=== PATIENT | male | born 1965 | race Two or more races ===

== ENCOUNTER 2017-11-16 13:50 | Emergency (ER) | payer MEDICAID ==
--- NOTE | 2017-11-16 13:53 | EDPHY ---
HPI/HX/ROS/PE/MDM Narrative: CHIEF COMPLAINT: CP, meth use HPI: The patient is a 52 y/o male with a history of hypertension and IV drug abuse arriving via EMS complaining of chest pain after methamphetamine use last night and alcohol use this morning. He described pinpoint left-sided chest pain to EMS and received 324mg PO aspirin en route. No cardiac disease history. On my exam, patient denies chest pain. He states that he wants to "go sit down by the [place] and because" he is "a piece of shit." REVIEW OF SYSTEMS: Aside from elements discussed in the HPI, a comprehensive 10-point review of systems was reviewed and is negative. PMH: hypertension, history of IV drug use SOCIAL HISTORY: Methamphetamine and alcohol abuse. Smoker. PHYSICAL EXAM: General:Patient is alert, in no acute distress. Smells of alcohol. ENT:Eyes are normal to inspection. ENT inspection normal. Neck: Normal inspection. Full range of motion. Respiratory:No respiratory distress. Breath sounds normal bilaterally. Cardiovascular: Regular rate and rhythm. Strong peripheral pulses. Normal cap refill. Abdomen:The abdomen is nontender to palpation. There are no peritoneal signs. Back: Normal to inspection. No tenderness to palpation. Skin: Normal color. No rash. Warm and dry. Track guevara noted on bilateral ACs. Extremities: Normal appearance. Full range of motion. Neuro: Oriented x3. Normal motor function. Normal sensory function. (Angelo Barnes) ED Course: I took over care of this patient at 3:00 p.m.. This patient is here for alcohol intoxication, suicidal ideation and had a complaint of chest pain to EMS but denied any chest pain to Dr. Angelo Barnes who initially evaluated him. The patient is to be evaluated by Behavioral Health when appropriately sober. The patient is currently on a detain her. Cardiac workup thus far has been unremarkable. There were some findings on his chest x-ray which required further investigation, therefore a CT angiogram of his chest has been ordered and is currently pending. 4:40 p.m., spoke with on-call radiologist Dr. Rufus Bowden. Results of CT angiogram of chest discussed. No pulmonary embolism. Some left ventricular hypertrophy noted. 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 It measures 3.[address] Bowden recommends of pulmonology follow-up. Patient medically cleared for mental health evaluation when appropriately sober. 10:00 p.m., the patient is showing signs of alcohol withdrawal including mild agitation and tachycardia. He will be given oral Librium and Ativan as needed to treat alcohol withdrawal. 11:00 p.m., the patient still has not been evaluated by Behavioral Health because of his positive drug screen for methamphetamine as well as alcohol intoxication. Care will be turned over to Dr. Tim Barron at this time. ( Pepito Sheppard) EKG was ordered and interpreted by myself. Please see [employer] system for official reading. CXR: read by Dr. Haines as likely pneumatoceles on left, but infection cannot be excluded. CTA ordered. Patient signed out to Dr. Sheppard at 3pm pending CT results and sober evaluation. (Angelo Barnes) MDM: 0630AM: No acute events overnight. Patient here with suicidal ideation, positive for methamphetamine, initially came in with alcohol intoxication. Is noted he has been hypertensive. States he usually takes blood pressure medications during the day however then states he usually takes them at night. Labetalol and lisinopril. He has been ordered. Additionally he has been on [facility] protocol receiving Ativan Librium. Patient is signed over to Dr. Barnes at 7:00 a.m. Shift change. Pending mental health evaluation. (Tim Barron) Patient has been evaluated by mental health who have determined patient will be best served by transfer to the [facility] for detox, and they will work with him as an outpatient. They feel he is appropriate for discharge from the ED. (Angelo Barnes) - Data Points Laboratory Results: Laboratory Results 11/16/17 14:08 11/16/17 14:08 Medications Given: Discontinued Medications Chlordiazepoxide HCl (Librium) 50 mg PO EDNOW ONE Stop: 11/16/17 22:02 Last Admin: 11/16/17 22:11 Dose: 50 mg Chlordiazepoxide HCl (Librium) 25 mg PO EDNOW ONE Stop: 11/17/17 06:03 Last Admin: 11/17/17 06:04 Dose: 25 mg Labetalol HCl (Trandate) 100 mg PO EDNOW ONE Stop: 11/17/17 06:08 Last Admin: 11/17/17 06:28 Dose: 100 mg Lisinopril (Zestril) 20 mg PO EDNOW ONE Stop: 11/17/17 06:03 Last Admin: 11/17/17 06:04 Dose: 20 mg Lorazepam (Ativan) 1 mg PO EDNOW ONE Stop: 11/16/17 22:02 Last Admin: 11/16/17 22:11 Dose: 1 mg Lorazepam (Ativan) 1 mg PO EDNOW ONE Stop: 11/17/17 00:57 Last Admin: 11/17/17 00:56 Dose: 1 mg Lorazepam (Ativan) 1 mg PO EDNOW ONE Stop: 11/17/17 06:03 Last Admin: 11/17/17 06:04 Dose: 1 mg Lorazepam (Ativan Injection) 2 mg IVP EDNOW ONE Stop: 11/17/17 08:09 Last Admin: 11/17/17 08:12 Dose: 2 mg Lorazepam (Ativan Injection) 2 mg IVP EDNOW ONE Stop: 11/17/17 09:48 Last Admin: 11/17/17 11:18 Dose: 2 mg Nicotine (Nicoderm Cq) 21 mg TD EDNOW ONE Stop: 11/16/17 21:17 Last Admin: 11/16/17 21:24 Dose: 21 mg General Time Seen by Provider: 11/16/17 13:52 Initial Vital Signs: Initial Vital Signs Temperature (C) 36.7 C 11/16/17 13:59 Heart Rate 94 11/16/17 13:59 Respiratory Rate 16 11/16/17 13:59 Blood Pressure 144/84 H 11/16/17 13:59 O2 Sat (%) 93 11/16/17 13:59 O2 Delivery Mode Room Air O2 (L/minute) 2 Allergies/Adverse Reactions: No Known Allergies Allergy (Unverified 11/16/17 13:58) Home Medications: Medication Instructions Recorded Labetalol HCl 11/16/17 Lisinopril 11/16/17 Departure - Departure Disposition: Home, Routine, Self-Care Clinical Impression: Alcoholic intoxication, Suicidal ideation, Polysubstance abuse Condition: Good Instructions: Suicide Prevention for Adults (ED) Additional Instructions: Please refrain from abusing alcohol. Return to the emergency department immediately for fever, vomiting, confusion, headache, abdominal pain or other worsening of condition. Followup with your primary care physician within 72 hours for reevaluation. Referrals: Patient,NotPresent [Unknown] - As per Instructions Report Scribed for: Angelo Barnes Report Scribed by: Natividad Ojeda Date of Report: 11/16/17 Time of Report: 13:54 Physician Review and Approval Statement: Portions of this note were transcribed by an ED scribe. I personally performed the history, physical exam, and medical decision making; and confirm the accuracy of the information in the transcribed note.
--- NOTE | 2017-11-16 14:08 | CPEKG ---
Heart Rate: 91 RR Interval: 659 P-R Interval: 180 QRSD Interval: 78 QT Interval: 360 QTC Interval: 443 P [place]: -1 QRS [place]: 30 T Wave [place]: 3 EKG Severity - NORMAL ECG - EKG Impression: SINUS RHYTHM Electronically Signed By: Zafar Restrepo 19-Nov-2017 09:01:07
[2017-11-16 14:19] LABS: PLATELET COUNT 221 10^3/uL (150-400)
[2017-11-16] MEDS ORDERED: IOPAMIDOL (ISOVUE 370) 100 ML BTL IV ONE (15:18)
[2017-11-16] MEDS ORDERED: NICOTINE 21 MG/24 HR PATCH TD ONE (21:16)
[2017-11-16] MEDS ORDERED: LORazepam 1 MG TAB PO ONE (22:01)
[2017-11-16] MEDS ORDERED: chlordiazePOXIDE 25 MG CAP PO ONE (22:01)
[2017-11-17] MEDS ORDERED: LORazepam 1 MG TAB ONE ×2 (00:53→06:00)
[2017-11-17] MEDS ORDERED: LORazepam 1 MG TAB PO ONE ×2 (00:56→06:02)
[2017-11-17] MEDS ORDERED: chlordiazePOXIDE 25 MG CAP ONE (06:00)
[2017-11-17] MEDS ORDERED: LISINOPRIL 20 MG TAB ONE (06:01)
[2017-11-17] MEDS ORDERED: chlordiazePOXIDE 25 MG CAP PO ONE (06:02)
[2017-11-17] MEDS ORDERED: LISINOPRIL 20 MG TAB PO ONE (06:02)
[2017-11-17] MEDS ORDERED: LABETALOL HCL 100 MG TAB PO ONE (06:07)
[2017-11-17] MEDS ORDERED: LORazepam 1 MG TAB PO PRN (07:41)
[2017-11-17] MEDS ORDERED: LORazepam 2 MG/ML INJ IVP PRN (07:41)
[2017-11-17] MEDS ORDERED: LORazepam 2 MG/ML INJ IVP ONE ×2 (08:08→09:47)
[2017-11-17] MEDS ORDERED: CHLORDIAZEPOXIDE 25MG PREPK#6 BTL TAKEHOME ONE (13:01)
[2017-11-17 14:02] VITALS: BP 138/70
== END 2017-11-17 14:09 | disposition home or self-care (01) ==
DX: F10.129 Alcohol abuse with intoxication, unspecified (principal); R45.851 Suicidal ideations; F19.10 Other psychoactive substance abuse, uncomplicated; I10 Essential (primary) hypertension; F17.200 Nicotine dependence, unspecified, uncomplicated
CPT/HCPCS: 80305; 96374; G0480; J2060; Q9967

== ENCOUNTER 2017-11-19 00:52 | Emergency (ER) | payer SELFPAY ==
--- NOTE | 2017-11-19 00:59 | EDPHY ---
H & P Stated Complaint: SI ETOH & Pills Source: Patient - Personal History Current Tetanus/Diphtheria Vaccine: Unsure Current Tetanus Diphtheria and Acellular Pertussis (TDAP): Unsure - Medical/Surgical History Hx Asthma: No Hx Chronic Respiratory Disease: No Hx Diabetes: No Hx Cardiac Disease: No Hx Renal Disease: No Hx Cirrhosis: No Hx Alcoholism: Yes Hx HIV/AIDS: No Hx Splenectomy or Spleen Trauma: No Other PMH: HTN, ETOH abuse, depression - Social History Smoking Status: Current every day smoker Time Seen by Provider: 11/19/17 00:59 HPI/ROS: HPI CHIEF COMPLAINT: Suicidal ideation, alcohol abuse, M1 hold HISTORY OF PRESENT ILLNESS: Patient is a 52-year-old male, he presents emergency room from the [facility], on M1 hold, for suicidal ideation. Patient states he is an alcoholic and drinks alcohol regularly. He was at the [facility] for the past 2 days after was seen here in the emergency room. He became suicidal more depressed over there. He was placed on M1 hold and sent back here to the emergency room. He denies any signs of withdrawal. He denies being anxious. Does state that he is depressed and suicidal. Patient denies any ingestion of pills. He states he did methamphetamine 3 days ago. Past Medical History: Alcoholism, homelessness, history depression, hypertension Past Surgical History: No recent surgery Social History: Daily alcohol use. Homeless. Family History: Noncontributory ROS REVIEW OF SYSTEMS: A comprehensive 10 point review of systems is otherwise negative aside from elements mentioned in the history of present illness. Exam Constitutional appears nontoxic no acute distress, triage nursing summary reviewed, vital signs reviewed, awake/alert. Eyes normal conjunctivae and sclera, EOMI, PERRLA. HENT normal inspection, atraumatic, moist mucus membranes, no epistaxis, neck supple/ no meningismus, no raccoon eyes. Respiratory clear to auscultation bilaterally, normal breath sounds, no respiratory distress, no wheezing. Cardiovascular rate normal, regular rhythm, no murmur, no edema, distal pulses normal. Gastrointestinal soft, non-tender, no rebound, no guarding, normal bowel sounds, no distension, no pulsatile mass. Genitourinary no CVA tenderness. Musculoskeletal no midline vertebral tenderness, full range of motion, no calf swelling, no tenderness of extremities, no meningismus, good pulses, neurovascularly intact. Skin pink, warm, & dry, no rash, skin atraumatic. Neurologic awake, alert and oriented x 3, AAOx3, moves all 4 extremities equally, motor intact, sensory intact, CN II-XII intact, normal cerebellar, normal vision, normal speech. Psychiatric normal mood/affect. Heme/Lymph/Immune no lymphadenopathy. Differential Diagnosis: Includes but is not limited to in a particular order: Alcoholism, alcohol withdrawal, alcohol abuse, mood disorder, depression, suicidal ideation Medical Decision Making: Plan for this patient blood draw for medical clearance. Patient on M1 hold. Patient need mental health evaluation Re-evaluation: Patient does have a medical history of hypertension. Takes labetalol and lisinopril he did not take it last night. His blood pressure was initially high here in emergency room. Is improved with his oral home blood pressure medications labetalol 100 mg p. O. Daily and 20 mg p.o. Daily. 0700AM: No acute events overnight, on m1 hold. Needs Evaluation. Signed over to Dr. Carrillo at 7am (Tim Barron) Constitutional: Initial Vital Signs Temperature (C) 36.8 C 11/19/17 00:53 Heart Rate 85 11/19/17 00:53 Respiratory Rate 16 11/19/17 00:53 Blood Pressure 209/144 H 11/19/17 00:53 O2 Sat (%) 97 11/19/17 00:53 O2 Delivery Mode Room Air Allergies/Adverse Reactions: No Known Allergies Allergy (Unverified 11/16/17 13:58) Home Medications: Medication Instructions Recorded Labetalol HCl 11/16/17 Lisinopril 11/16/17 Labetalol HCl [Trandate 100 mg (*)] 100 mg PO BID #10 tab 11/20/17 Lisinopril [PRINIVIL] 20 mg PO DAILY #5 tablet 11/20/17 Medical Decision Making ED Course/Re-evaluation: 0700AM: 10/21/17: Patient signed over to Dr. Reyes at 7am Shift-change. Pending Placement. (Tim Barron) Patient has remained stable. He has been evaluated. He has been accepted for placement at [facility]. They request we give him 5 days worth of his blood pressure medication. I have written a prescription for lisinopril and labetalol and we will have our pharmacy send these medications with the patient to [facility]. (Jason Reyes) Differential Diagnosis: Apparent polysubstance abuse. Depression and suicide ideation. (Jason Reyes) Other Provider: Care assumed at 1445 with plan for psych placement. 2230: signed out to [facility] with placement pending. (Arjun Galaviz) - Data Points Laboratory Results: Laboratory Results 11/19/17 02:04 11/19/17 01:31 Medications Given: Lisinopril (Zestril) 20 mg PO DAILY SHERRY Stop: 05/18/18 08:59 Last Admin: 11/20/17 07:51 Dose: 20 mg Discontinued Medications Labetalol HCl (Trandate) 100 mg PO ONCE ONE Stop: 11/19/17 01:02 Last Admin: 11/19/17 01:24 Dose: 100 mg Labetalol HCl (Trandate) 100 mg PO ONCE ONE Stop: 11/19/17 21:28 Last Admin: 11/19/17 22:07 Dose: 100 mg Labetalol HCl (Trandate) 100 mg PO EDNOW ONE Stop: 11/20/17 07:43 Last Admin: 11/20/17 08:28 Dose: 100 mg Lisinopril (Zestril) 20 mg PO EDNOW ONE Stop: 11/19/17 01:01 Last Admin: 11/19/17 01:06 Dose: 20 mg Lorazepam (Ativan) 1 mg PO ONCE ONE Stop: 11/19/17 01:04 Last Admin: 11/19/17 01:06 Dose: 1 mg Lorazepam (Ativan) 1 mg PO EDNOW ONE Stop: 11/19/17 18:43 Last Admin: 11/19/17 18:44 Dose: 1 mg Lorazepam (Ativan) 1 mg PO EDNOW ONE Stop: 11/19/17 21:28 Last Admin: 11/19/17 22:07 Dose: 1 mg Nicotine (Nicoderm Cq) 21 mg TD EDNOW ONE Stop: 11/20/17 07:44 Last Admin: 11/20/17 07:51 Dose: 21 mg Departure - Departure Disposition: Other Psych, Not [facility] Clinical Impression: Suicidal ideation Condition: Fair Instructions: Suicide Prevention for Adults (ED) Additional Instructions: Return for worsening symptoms. Continue your blood pressure medication. Referrals: NONE *PRIMARY CARE P,. [Primary Care Provider] - As per Instructions Prescriptions: Labetalol HCl [Trandate 100 mg (*)] 100 mg PO BID #10 tab Lisinopril [PRINIVIL] 20 mg PO DAILY #5 tablet
[2017-11-19] MEDS ORDERED: LISINOPRIL 20 MG TAB PO ONE (01:00)
[2017-11-19] MEDS ORDERED: LABETALOL HCL 100 MG TAB PO ONE ×2 (01:01→21:27)
[2017-11-19] MEDS ORDERED: LORazepam 1 MG TAB PO ONE ×3 (01:03→21:27)
[2017-11-19 02:10] LABS: PLATELET COUNT 206 10^3/uL (150-400)
[2017-11-19] MEDS: LISINOPRIL 20 MG TAB PO SCH (08:18)
[2017-11-19] MEDS ORDERED: LORazepam 1 MG TAB ONE (18:41)
[2017-11-20] MEDS ORDERED: LABETALOL HCL 100 MG TAB PO SCH
[2017-11-20] MEDS ORDERED: LISINOPRIL 20 MG TAB PO SCH
[2017-11-20] MEDS ORDERED: LABETALOL HCL 100 MG TAB PO ONE (07:42)
[2017-11-20] MEDS ORDERED: NICOTINE 21 MG/24 HR PATCH TD ONE (07:43)
[2017-11-20] MEDS: LISINOPRIL 20 MG TAB PO SCH (07:51)
[2017-11-20 11:13] VITALS: BP 116/83
== END 2017-11-20 12:23 ==
LOC: EDBD → EDUNIT#
DX: R45.851 Suicidal ideations (principal); I10 Essential (primary) hypertension; F17.200 Nicotine dependence, unspecified, uncomplicated
CPT/HCPCS: 80305; G0480